=== PATIENT | male | born 1960 | race African-American/Black ===

== ENCOUNTER 2024-12-01 05:45 | Inpatient (IN) | payer MEDICARE, MEDICAID ==
[~2024-12-01] VITALS: Ht 185.4 cm; Wt 108.9 kg
[2024-12-01] MEDS ORDERED: METHYLPREDNISOLONE SOD SUCC 125MG/2ML (ACT-O-VIAL) IV STA (06:10)
[2024-12-01] MEDS ORDERED: ALBUTEROL (0.083%) 2.5MG/3ML NEB HHN STA (06:10)
[2024-12-01] MEDS ORDERED: IPRATROPIUM BROMIDE (0.02%) 0.5MG/2.5ML NEB HHN STA (06:10)
[2024-12-01 07:11] LABS: BG BASE EXCESS -3.3 mmol/L (-2.0-3.0); BG CARBOXYHEMOGLOBIN 1.3 % (0.5-1.5); BG DEOXYHEMOGLOBIN 11.6 % (0.0-5.0); BG FRACTION INSPIRED OXYGEN 21; BG HCO3 ACT 21.6 mmol/L (21.0-28.0); BG METHEMOGLOBIN 0.3 % (0.5-1.5); BG OXYGEN SATURATION 88.2 % (94.0-98.0); BG OXYHEMOGLOBIN 86.8 % (94.0-98.0); BG PCO2 38.5 mmHg (35.0-48.0); BG PH 7.367 (7.350-7.450); BG PO2 55.9 mmHg (83.0-108.0); BG TOTAL HEMOGLOBIN 13.8 g/dL (13.5-17.5)
[2024-12-01 07:42] LABS: CHLORIDE 114 mEq/L (98-107); POTASSIUM 3.5 mEq/L (3.5-5.1); SODIUM 144 mEq/L (136-145)
[2024-12-01 07:43] LABS: CARBON DIOXIDE 21 mEq/L (21-32)
[2024-12-01 07:45] LABS: INR 0.9; PROTHROMBIN TIME 10.1 sec (9.6-11.0)
[2024-12-01] MEDS ORDERED: LEVOFLOXACIN 750MG PREMIX 150 ML IV NR (07:45)
[2024-12-01 07:48] LABS: CREATININE 1.7 mg/dL (0.6-1.3); GLUCOSE 150 mg/dL (70-105); UREA NITROGEN BLOOD 18 mg/dL (9-23)
[2024-12-01 07:49] LABS: ETHANOL BLOOD < 10 mg/dL (<10)
[2024-12-01 07:50] LABS: TROPONIN I HIGH SENSITIVITY 9 ng/L (3.0-53)
[2024-12-01] MEDS ORDERED: LEVOFLOXACIN 250MG TABLET PO ONE (08:45)
[2024-12-01] MEDS ORDERED: ALBUTEROL (0.083%) 2.5MG/3ML NEB HHN NR (08:45)
[2024-12-01] MEDS ORDERED: IPRATROPIUM BROMIDE (0.02%) 0.5MG/2.5ML NEB HHN NR (08:45)
[2024-12-01] MEDS: METHYLPREDNISOLONE SOD SUCC 125MG/2ML (ACT-O-VIAL) IV NR (09:24)
[2024-12-01] MEDS: LEVOFLOXACIN 250MG TABLET PO NR (09:25)
[2024-12-01 10:27] LABS: BASOPHILS % 0.6 % (0.0-2.0); EOSINOPHILS % 0.3 % (0.0-5.0); HEMATOCRIT. 40.1 % (42.0-52.0); HEMOGLOBIN. 12.9 g/dL (14.0-18.0); LYMPHOCYTES % 22.7 % (20.0-50.0); MEAN CORPUSCULAR HEMOGLOBIN 26.1 pg (28.0-32.0); MEAN CORPUSCULAR HGB CONC 32.2 g/dL (31.0-37.0); MEAN PLATELET VOLUME 9.5 fl (7.4-10.4); MONOCYTES % 12.9 % (2.0-8.0); NEUTROPHILS % 63.5 % (40.0-76.0); PLATELET 174 x1000/uL (130-400); RED BLOOD CELL COUNT 4.95 mill/uL (4.7-6.1); RED CELL DISTRIBUTION WIDTH 19.1 % (11.6-14.6); WHITE BLOOD COUNT 6.4 x1000/uL (4.5-11.0)
[2024-12-01 10:41] LABS: TROPONIN I HIGH SENSITIVITY 8 ng/L (3.0-53)
[2024-12-01] MEDS ORDERED: IPRATROPIUM/ALBUTEROL 0.5-3(2.5)MG/3ML NEB HHN PRN (11:00)
[2024-12-01] MEDS ORDERED: DOCUSATE SODIUM 100MG CAPSULE PO PRN (11:00)
[2024-12-01] MEDS ORDERED: CLONIDINE 0.1MG TABLET PO PRN (11:00)
[2024-12-01] MEDS ORDERED: ONDANSETRON HCL 4MG/2ML INJ IV PRN (11:00)
[2024-12-01] MEDS ORDERED: ACETAMINOPHEN 325MG TABLET PO PRN (11:00)
[2024-12-01 11:37] LABS: IRON 29 ug/dL (65-175)
[2024-12-01 11:38] LABS: TRIGLYCERIDE 98 mg/dL (0-150)
[2024-12-01 11:39] LABS: LDL CHOLESTEROL 131 mg/dL (5-100)
[2024-12-01 11:40] LABS: CHOLESTEROL 218 mg/dL (<200); HDL CHOLESTEROL 54 mg/dL (>55); TOTAL IRON BINDING CAPACITY 344 ug/dl (250-425)
[2024-12-01 12:19] LABS: FOLIC ACID (FOLATE) SERUM > 20.00 ng/mL (>5.38); VITAMIN B12 SERUM 582 pg/mL (211-911)
[2024-12-01] MEDS: ENOXAPARIN 40MG/0.4ML SYR SUBCUT SCH (12:26)
[2024-12-01] MEDS: METHYLPREDNISOLONE SOD SUCC 40MG/ML (ACT-O-VIAL) IV SCH (15:10)
[2024-12-01 15:54] LABS: CLARITY URINE CLEAR (CLEAR); COLOR URINE YELLOW (YELLOW); GLUCOSE URINE NEGATIVE (NEGATIVE); KETONES URINE NEGATIVE (NEGATIVE); LEUKOCYTE ESTERASE URINE 2+ (NEGATIVE); NITRITE URINE POSITIVE (NEGATIVE); OCCULT BLOOD URINE TRACE (NEGATIVE); PH URINE 5.5 (4.5-8.0); PROTEIN URINE 2+ (NEGATIVE); SPECIFIC GRAVITY URINE 1.013 (1.005-1.030); UROBILINOGEN URINE 0.2 E.U./dL (0.2-1.0)
[2024-12-01 16:08] LABS: *AMPHETAMINES SCREEN URINE NEGATIVE (NEGATIVE); *BARBITURATES SCREEN URINE NEGATIVE (NEGATIVE); *BENZODIAZEPINES SCREEN URINE NEGATIVE (NEGATIVE); *COCAINE SCREEN URINE NEGATIVE (NEGATIVE); METHADONE URINE SCREEN NEGATIVE (NEGATIVE)
[2024-12-01 16:09] LABS: CANNABINOID URINE SCREEN NEGATIVE (NEGATIVE); ECSTASY MDMA SCREEN URINE NEGATIVE (NEGATIVE); OPIATES URINE SCREEN NEGATIVE (NEGATIVE); PHENCYCLIDINE URINE SCREEN NEGATIVE (NEGATIVE)
[2024-12-01 16:16] LABS: BACTERIA URINE 2+; RBC URINE 0-2 /hpf (0-2); SQUAMOUS EPITHELIAL CELL URINE FEW /lpf (RARE/1+)
[2024-12-01 16:17] VITALS: PULSE 75; RESP 18
[2024-12-01] MEDS: IPRATROPIUM/ALBUTEROL 0.5-3(2.5)MG/3ML NEB HHN SCH (16:17)
[2024-12-01 18:13] VITALS: BP 145/64; PULSE 75; RESP 18; TEMP 36.7
[2024-12-01 20:00] VITALS: BP 128/52; PULSE 82; RESP 20; TEMP 36.7; O2SAT 96
[2024-12-01 21:29] LABS: CREATINE KINASE MB FRACTION 6.3 ng/mL (0.5-3.6)
[2024-12-01 23:59] VITALS: PULSE 89; RESP 18; O2SAT 92
[2024-12-01] MEDS: BUDESONIDE 0.5MG/2ML NEB HHN SCH (23:59)
[2024-12-02] VITALS (11 sets, daily range): BP systolic 117–175; BP diastolic 54–95; PULSE 74–84; RESP 16–21; TEMP 36.4–37; O2SAT 93–100
[2024-12-02 06:51] LABS: HEMATOCRIT 37.8 % (42.0-52.0); HEMOGLOBIN 12.7 g/dL (14.0-18.0); MEAN CORPUSCULAR HEMOGLOBIN 26.9 pg (28.0-32.0); MEAN CORPUSCULAR HGB CONC 33.6 g/dL (31.0-37.0); PLATELET 180 x1000/uL (130-400); RED BLOOD CELL COUNT 4.73 mill/uL (4.7-6.1); RED CELL DISTRIBUTION WIDTH 18.7 % (11.6-14.6); WHITE BLOOD COUNT 6.1 x1000/uL (4.5-11.0)
[2024-12-02 06:53] LABS: CHLORIDE 110 mEq/L (98-107); POTASSIUM 4.7 mEq/L (3.5-5.1); SODIUM 140 mEq/L (136-145)
[2024-12-02 06:54] LABS: CALCIUM 9.5 mg/dL (8.7-10.4); CARBON DIOXIDE 22 mEq/L (21-32)
[2024-12-02 06:59] LABS: CREATININE 1.7 mg/dL (0.6-1.3); GLUCOSE 134 mg/dL (70-105)
[2024-12-02 07:00] LABS: CREATINE KINASE MB FRACTION 6.7 ng/mL (0.5-3.6); UREA NITROGEN BLOOD 20 mg/dL (9-23)
[2024-12-02 07:01] LABS: ALANINE AMINOTRANSFERASE 18 IU/L (10-49); ALBUMIN 4.1 g/dL (3.2-4.8); ASPARTATE AMINOTRANSFERASE 16 IU/L (<34); CREATINE KINASE 365 IU/L (46-171); PHOSPHORUS 2.7 mg/dL (2.5-4.9)
[2024-12-02 07:02] LABS: BILIRUBIN TOTAL 0.3 mg/dL (0.1-1.0); PROTEIN TOTAL 6.9 g/dL (6.0-8.3)
[2024-12-02] MEDS: AMLODIPINE 10MG TABLET PO SCH (08:33)
[2024-12-02] MEDS: ENOXAPARIN 120MG/0.8ML SYR SUBCUT SCH (10:43)
[2024-12-02] MEDS: GUAIFENESIN 200MG/10ML SUGAR FREE UDC PO PRN (14:26)
[2024-12-02] MEDS: ACETAMINOPHEN 325MG TABLET PO PRN (21:11)
[2024-12-03] VITALS (13 sets, daily range): BP systolic 113–154; BP diastolic 51–87; PULSE 60–98; RESP 16–22; TEMP 36.6–37.1; O2SAT 91–100
[2024-12-03] MEDS: ZOLPIDEM TARTRATE 5MG TABLET PO NR (00:49)
[2024-12-03] MEDS: LIDOCAINE 5% PATCH TOP NR (01:01)
[2024-12-03 07:15] LABS: BASOPHILS % 0.3 % (0.0-2.0); HEMATOCRIT. 38.4 % (42.0-52.0); HEMOGLOBIN. 12.6 g/dL (14.0-18.0); LYMPHOCYTES % 13.8 % (20.0-50.0); MEAN CORPUSCULAR HEMOGLOBIN 26.2 pg (28.0-32.0); MEAN CORPUSCULAR HGB CONC 32.8 g/dL (31.0-37.0); MEAN PLATELET VOLUME 9.7 fl (7.4-10.4); MONOCYTES % 4.5 % (2.0-8.0); NEUTROPHILS % 81.4 % (40.0-76.0); PLATELET 184 x1000/uL (130-400); RED CELL DISTRIBUTION WIDTH 18.9 % (11.6-14.6); WHITE BLOOD COUNT 8.7 x1000/uL (4.5-11.0)
[2024-12-03 07:39] LABS: CHLORIDE 108 mEq/L (98-107); POTASSIUM 4.4 mEq/L (3.5-5.1); SODIUM 137 mEq/L (136-145)
[2024-12-03 07:40] LABS: CALCIUM 9.3 mg/dL (8.7-10.4); CARBON DIOXIDE 18 mEq/L (21-32)
[2024-12-03 07:45] LABS: CREATININE 1.8 mg/dL (0.6-1.3); GLUCOSE 145 mg/dL (70-105)
[2024-12-03 07:46] LABS: UREA NITROGEN BLOOD 30 mg/dL (9-23)
[2024-12-03 07:48] LABS: PHOSPHORUS 3.4 mg/dL (2.5-4.9)
[2024-12-03 09:21] LABS: BG CARBOXYHEMOGLOBIN 0.3 % (0.5-1.5); BG DEOXYHEMOGLOBIN 6.3 % (0.0-5.0); BG FRACTION INSPIRED OXYGEN 21; BG HCO3 ACT 21.4 mmol/L (21.0-28.0); BG METHEMOGLOBIN 0.3 % (0.5-1.5); BG OXYGEN SATURATION 93.7 % (94.0-98.0); BG OXYHEMOGLOBIN 93.1 % (94.0-98.0); BG PCO2 36.3 mmHg (35.0-48.0); BG PH 7.388 (7.350-7.450); BG PO2 69.6 mmHg (83.0-108.0); BG SAMPLE SITE RIGHT RADIAL; BG VENT MODE ROOM AIR
[2024-12-03] MEDS: AMLODIPINE 5MG TABLET PO SCH (09:43)
[2024-12-03] MEDS ORDERED: MELATONIN 3MG TABLET PO PRN (19:00)
[2024-12-03] MEDS: HYDROCODONE/ACETAMINOPHEN 5/325MG TABLET PO NR (23:29)
[2024-12-03] MEDS: LACTATED RINGERS 1,000 ML IV ONE (23:58)
[2024-12-04] VITALS (10 sets, daily range): BP systolic 107–137; BP diastolic 55–78; PULSE 59–78; RESP 14–22; TEMP 36.6–36.8; O2SAT 94–98
[2024-12-04 06:43] LABS: CHLORIDE 107 mEq/L (98-107); POTASSIUM 4.9 mEq/L (3.5-5.1); SODIUM 138 mEq/L (136-145)
[2024-12-04 06:44] LABS: CALCIUM 9.4 mg/dL (8.7-10.4); CARBON DIOXIDE 20 mEq/L (21-32)
[2024-12-04 06:49] LABS: GLUCOSE 137 mg/dL (70-105); UREA NITROGEN BLOOD 37 mg/dL (9-23)
[2024-12-04 06:51] LABS: PHOSPHORUS 3.8 mg/dL (2.5-4.9)
[2024-12-04 07:13] LABS: BASOPHILS % 0.2 % (0.0-2.0); DIFFERENTIAL COMMENT 0; HEMOGLOBIN. 13.7 g/dL (14.0-18.0); MEAN CORPUSCULAR HEMOGLOBIN 26.7 pg (28.0-32.0); MEAN CORPUSCULAR HGB CONC 33.4 g/dL (31.0-37.0); MEAN CORPUSCULAR VOLUME 79.9 fL (80.0-94.0); MEAN PLATELET VOLUME 10.6 fl (7.4-10.4); MONOCYTES % 4.2 % (2.0-8.0); NEUTROPHILS % 77.6 % (40.0-76.0); PLATELET 169 x1000/uL (130-400); RED BLOOD CELL COUNT 5.14 mill/uL (4.7-6.1); RED CELL DISTRIBUTION WIDTH 18.1 % (11.6-14.6); WHITE BLOOD COUNT 9.1 x1000/uL (4.5-11.0)
[2024-12-04] MEDS ORDERED: LIDOCAINE HCL 1% 10 MG/ML 10ML VIAL ONE (09:09)
[2024-12-04] MEDS ORDERED: AZITHROMYCIN 500MG/250ML 250 ML IV SCH (09:30)
[2024-12-04] MEDS: AZITHROMYCIN 500 MG TABLET PO SCH (11:34)
[2024-12-04] MEDS: CEFTRIAXONE 1GM/50ML 50 ML IV SCH (11:44)
[2024-12-04] MEDS: HYDROCODONE/ACETAMINOPHEN 5/325MG TABLET PO PRN (21:19)
[2024-12-05] VITALS (7 sets, daily range): BP systolic 133–150; BP diastolic 55–69; PULSE 56–82; RESP 16–18; TEMP 36.1–37; O2SAT 69–100
[2024-12-05] MEDS ORDERED: FAMO40TA70 MT (09:07)
[2024-12-05] MEDS ORDERED: LEVO750T68 MT (09:07)
[2024-12-05] MEDS ORDERED: AMLO5TAB88 PO (09:07)
[2024-12-05] MEDS ORDERED: APIX5TAB MT (09:07)
[2024-12-05] MEDS ORDERED: GUAIFENESIN 200MG/10ML SUGAR FREE UDC PO PRN (15:30)
== END 2024-12-05 17:45 | disposition home or self-care (01) | DRG 133 ==
LOC: ER 05:45 → 7WST 10:39
PROVIDERS: ADMIT Hospitalist; ATTEND Hospitalist
PROC: 02HV33Z Insertion of Infusion Device into Superior Vena Cava, Percutaneous Approach (ICD-10-PCS; principal; 2024-12-04)
PROC: B548ZZA Ultrasonography of Superior Vena Cava, Guidance (ICD-10-PCS; 2024-12-04)
PROC: B5181ZA Fluoroscopy of Superior Vena Cava using Low Osmolar Contrast, Guidance (ICD-10-PCS; 2024-12-04)
DX: J96.01 Acute respiratory failure with hypoxia (principal); I12.0 Hypertensive chronic kidney disease with stage 5 chronic kidney disease or end stage renal disease; D68.59 Other primary thrombophilia; N17.9 Acute kidney failure, unspecified; N18.6 End stage renal disease; G82.20 Paraplegia, unspecified; E83.39 Other disorders of phosphorus metabolism; E83.51 Hypocalcemia; G81.94 Hemiplegia, unspecified affecting left nondominant side; M62.82 Rhabdomyolysis; Z20.822 Contact with and (suspected) exposure to COVID-19; E11.22 Type 2 diabetes mellitus with diabetic chronic kidney disease; B95.61 Methicillin susceptible Staphylococcus aureus infection as the cause of diseases classified elsewhere; D64.9 Anemia, unspecified; E78.5 Hyperlipidemia, unspecified; N28.1 Cyst of kidney, acquired; Z99.2 Dependence on renal dialysis; E11.51 Type 2 diabetes mellitus with diabetic peripheral angiopathy without gangrene; E11.621 Type 2 diabetes mellitus with foot ulcer; F17.210 Nicotine dependence, cigarettes, uncomplicated; E11.69 Type 2 diabetes mellitus with other specified complication; I89.0 Lymphedema, not elsewhere classified; K59.00 Constipation, unspecified; M86.8X7 Other osteomyelitis, ankle and foot; N30.90 Cystitis, unspecified without hematuria; L97.519 Non-pressure chronic ulcer of other part of right foot with unspecified severity; Z88.5 Allergy status to narcotic agent; Z86.718 Personal history of other venous thrombosis and embolism; Z79.899 Other long term (current) drug therapy; Z79.4 Long term (current) use of insulin; Z59.00 Homelessness unspecified
CPT/HCPCS: 36415; 36573; 36600; 71045; 76770; 78580; 80048; 80053; 80061; 80305; 80320; 81003; 82375; 82550; 82553; 82607; 82746; 82805; 83036; 83540; 83550; 83735; 83880; 84100; 84145; 84484; 85025; 85027; 87426; 87804; 93005; 93970; 94070; 94640; 94664; 94760; 97161; 97166; 98960; 99291; A4606; C1725; J0696; J1650; J2003; J2919; J2920; J7626; G0480